=== PATIENT | female | born 1955 | race Caucasian/White ===

== ENCOUNTER 2022-10-02 04:52 | Emergency (ER) | payer MEDICARE, BC ==
[~2022-10-02] VITALS: Ht 160 cm; Wt 65.8 kg
[2022-10-02 05:00] VITALS: BP 127/80
[2022-10-02 05:10] LABS: BILIRUBIN,URINE 1+ (NEGATIVE); UROBILINOGEN,URINE 0.2 E.U./dL (0.2)
[2022-10-02] MEDS ORDERED: ZOFRAN ODT ONE (05:15)
[2022-10-02] MEDS ORDERED: ZOFRAN ODT SL STA (05:18)
--- NOTE | 2022-10-02 05:21 | ER.PDOC ---
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 She seems agitated but when responding to questions she is appropriate. Has popsicle sticks taped to her fingers. No hx of renal colic Denies chest pain 1st visit here. Hx from her and Review of meds: on Clonapen,xanax,norco ,welbutrin,zyprexa,dexamphetamines,prozac,lisinopril as well as THC!!! 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 She is at risk for serotonin crisis as well as extrapyrimidal effects I gave zofran for nausea but followed up with benadryl IV. She requested pain meds,but would avoid narcotics,since she is also on [place]. Severity/Quality: mild Associated Symptoms: abdominal pain, dysuria, lower back pain, nausea/vomiting Allergies: Coded Allergies: No Known Drug Allergies (Verified Allergy, Unknown, 10/02/22) Past Medical History Medical History: hypertension, other Surgical History: no surgical history Family History Significant Family History: no pertinent family hx Social History Smoking: less than 1 pack/day Alcohol Use: occassionally Drug Use: marijuana Review of Systems Constitutional: no symptoms reported EENTM: no symptoms reported Respiratory: no symptoms reported Cardiovascular: no symptoms reported Gastrointestinal: see HPI, abdominal pain, nausea, vomiting Genitourinary: see HPI, burning, frequency, hematuria Musculoskeletal: no symptoms reported Skin: see HPI, other (ecchymosis) Psychiatric/Neurological: see HPI, anxiety, depressed Endocrine: no symptoms reported Hematologic/Lymphatic: no symptoms reported All Other Systems: Reviewed and Negative Physical Exam General Appearance: No Apparent Distress, Anxious, Other (bruising to) EENT: eyes nml inspection, pharynx nml Cardiovascular/Respiratory: Regular Rate, Rhythm, No JVD, Normal Breath Sounds Abdomen: Non Tender, Soft Rectal: Deferred Back: nml inspection Extremities: Normal Range of Motion 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 (10/02/22 05:26) Saline Lock (10/02/22 05:26) Ct Abd/Pelvis Wo Iv Contrast (10/02/22 05:26) Ketorolac Tromethamine (Toradol) (10/02/22 05:30) Diphenhydramine Hcl (Benadryl) (10/02/22 05:30) 0.9 % Sodium Chloride (Ns 1000ml) (10/02/22 05:30) 0.9 % Sodium Chloride (Ns 1000ml) (10/02/22 05:32) Diphenhydramine Hcl (Benadryl) (10/02/22 05:32) Ketorolac Tromethamine (Toradol) (10/02/22 05:32) Vital Signs Date Time Temp Pulse Resp B/P (MAP) Pulse Ox O2 Delivery O2 Flow Rate FiO2 10/02/22 05:00 98.3 90 16 97 10/02/22 05:00 98.3 90 16 127/80 (96) 97 Room Air* 0 21 Administered Medications Medications (Trade) Dose Ordered Sig/Usman Route PRN Reason Start Time Stop Time Status Last Admin Dose Admin Diphenhydramine HCl (Benadryl) 25 mg Q6HR PRN IV ITCHING 10/02/22 05:30 11/01/22 05:29 10/02/22 05:36 25 MG Ketorolac Tromethamine (Toradol) 15 mg Q6H PRN IV PAIN 4 - 6 10/02/22 05:30 10/07/22 05:29 10/02/22 05:36 15 MG Ondansetron HCl (Zofran Odt) 4 mg OT STAT SL 10/02/22 05:18 10/02/22 05:20 DC 10/02/22 05:19 4 MG Sodium Chloride 1,000 ml @ 0 mls/hr Q0M ONCE IV 10/02/22 05:30 10/02/22 05:31 DC 10/02/22 05:36 1,200 MLS/HR Laboratory Tests Test 10/02/22 04:55 10/02/22 05:30 Urine Collection Type RANDOM Urine Color RED Urine Appearance CLOUDY Urine Bilirubin 1+ (NEGATIVE) H Urine Ketones NEGATIVE (NEGATIVE) Urine Specific Allred 1.015 (1.005-1.030) Urine pH 7.5 (4.5-8.0) Urine Protein 2+ (NEGATIVE) H Urine Urobilinogen 0.2 E.U./dL (0.2) Urine Nitrate NEGATIVE (NEGATIVE) Urine Leukocyte Esterase 1+ (NEGATIVE) H Urine Glucose (Auto)(UA) NEGATIVE (NEGATIVE) Urine Blood 3+ (NEGATIVE) H Urine RBC TooNumerousToCount RBC/HPF (NONE Urine WBC 0-2 WBC/HPF (0-2) Urine Squamous Epithelial Cells FEW (<=FEW) Urine Bacteria FEW (NONE SEEN) H White Blood Count 8.2 10^3/uL (4.5-11.0) Red Blood Count 4.05 10^6/uL (4.00-5.20) Hemoglobin 12.4 g/dL (12.0-15.0) Hematocrit 37.8 % (36.0-46.0) Mean Corpuscular Volume 93.3 fL (78-100) Mean Corpuscular Hemoglobin 30.6 pg (26-34) Mean Corpuscular Hemoglobin Concent 32.8 g/dL (33-36.5) L Red Cell Distribution Width 13.4 % (11.5-14.5) Platelet Count 367 10^3/uL (150-400) Mean Platelet Volume 8.8 fL (7.8-11.0) Neutrophils (%) (Auto) 70.0 % (41.0-85.0) Lymphocytes (%) (Auto) 19.8 % (24.0-44.0) L Monocytes (%) (Auto) 7.6 % (5.0-12.0) Neutrophils # (Auto) 5.7 10^3/uL (1.8-7.7) Lymphocytes # (Auto) 1.61 10^3/uL1 (1.0-4.8) Monocytes # (Auto) 0.6 10^3/uL (0.3-0.8) Absolute Immature Granulocyte (auto 0.04 10^3 u/L (0-2) Absolute Eosinophils (auto) 0.1 10^3/uL (0.0-0.2) Immature Granulocytes % 0.50 % (0.00-0.50) Eosinophils % 1.7 % (0.0-5.0) Basophils % 0.4 % (0.0-0.2) H Basophils # 0.0 10^3/uL (0.0-0.1) Sodium Level 133 mmol/L (132-145) Potassium Level 4.3 mmol/L (3.6-5.2) Chloride Level 97.0 mmol/L (96-109) Carbon Dioxide Level 27.2 mmol/L (20.0-32) Anion Gap 13.1 Blood Urea Nitrogen 23 mg/dL (7-18) H Creatinine 1.22 mg/dL (0.59-1.40) Estimated GFR () 53.4 (>/=60) Est GFR (CKD-EPI)(Non-Afr Icelandic) 44.1 (>/=60) BUN/Creatinine Ratio 18.0 (10.0-20.0) Glucose Level 98 mg/dL (70-110) Calcium Level 8.5 mg/dL (8.4-10.5) Total Bilirubin 0.5 mg/dL (0.2-1.0) Aspartate Amino Transferase (AST) 30 U/L (0-35) Alanine Aminotransferase (ALT) 28 U/L (12-78) Alkaline Phosphatase 121 U/L (50-136) Total Protein 7.3 g/dL (6.4-8.2) Albumin 3.9 g/dL (3.4-5.0) Globulin 3.4 Albumin/Globulin Ratio 1.147 Lipase 30 U/L (16-77) Review of urine not really pyuric. More like renal colic. Large blood and protein CBC is normal. 5:45 Progress Progress T12 compression fracture ? age,bladder thickening on CT Discussed labs and findings Both patient and had no questions EKG/XRAY/CT/US CT Comments: reviewed by me ER DEPART Departure Time of Disposition: 06:51 Disposition: 01 HOME / SELF CARE / HOMELESS Impression: Primary Impression: Cystitis Additional Impression: T12 compression fracture Condition: Stable Referrals: PCP,UNKNOWN (PCP) PRIMARY CARE PROVIDER Comments bactrim ds q12 hrs advil 3 tabs q6-8 hrs heat to back f/u with local md return if fever, persistant vomiting Duration or Time Spent with Pa: 45 Problem Qualifiers VIKKI ARMANDO MD Oct 02, 2022 05:21
[2022-10-02] MEDS ORDERED: TORADOL IV PRN (05:30)
[2022-10-02] MEDS ORDERED: BENADRYL IV PRN (05:30)
[2022-10-02] MEDS ORDERED: NS 1000ML 1,000 ML IV ONE (05:30)
[2022-10-02] MEDS ORDERED: BENADRYL ONE (05:32)
[2022-10-02] MEDS ORDERED: NS 1000ML 1,000 ML ONE (05:32)
[2022-10-02] MEDS ORDERED: TORADOL ONE (05:32)
[2022-10-02 05:37] LABS: BASOPHIL % 0.4 % (0.0-0.2); EOSINOPHIL # 0.1 10^3/uL (0.0-0.2); EOSINOPHIL % 1.7 % (0.0-5.0); LYMPHOCYTES # 1.61 10^3/uL1 (1.0-4.8); LYMPHOCYTES % 19.8 % (24.0-44.0); MEAN CORP HGB 30.6 pg (26-34); MONOCYTES # 0.6 10^3/uL (0.3-0.8); MONOCYTES % 7.6 % (5.0-12.0); NEUTROPHIL # 5.7 10^3/uL (1.8-7.7); PLATELET COUNT 367 10^3/uL (150-400); RED CELL DISTRIBUTION WIDTH 13.4 % (11.5-14.5)
[2022-10-02 05:54] LABS: CARBON DIOXIDE 27.2 mmol/L (20.0-32)
--- NOTE | 2022-10-02 06:22 | DIREP ---
PROCEDURE:CT ABDOMEN/PELVIS W/O CONTRAST COMPARISON:None. INDICATIONS:abdominal pain,dysuria TECHNIQUE:Axial images were created through the abdomen and pelvis without intravenous contrast material. No oral contrast was administered. Sagittal and coronal reconstructions were performed from source images. FINDINGS: LUNG BASES:Normal. No visible pulmonary or pleural disease. LIVER:Normal. No significant liver lesions are identified. BILIARY:Normal. No visible dilatation or calcification. PANCREAS:Normal. No lesion, fluid collection, ductal dilatation, or atrophy. SPLEEN:Normal. No enlargement or focal lesion. ADRENALS:Normal. No mass or enlargement. URINARY TRACT:Normal. No suspicious lesions or hydronephrosis. AORTA/VASCULAR:There is mild atherosclerosis. RETROPERITONEUM:Normal. No mass or adenopathy. BOWEL/MESENTERY:Normal. There is no intestinal obstruction, free fluid, free air or mesenteric inflammatory changes. The appendix is normal. ABDOMINAL WALL:Mild thoracic and lumbar spondylosis. There is an age-indeterminate compression fracture of the T12 vertebral body. PELVIC ORGANS:The uterus is normal. Mild urinary bladder wall thickening. BONES:Normal for age. No bony lesion or acute fracture. OTHER:Negative. CONCLUSION: 1. Mild thickening of the urinary bladder wall may represent acute cystitis in the appropriate clinical setting. 2. Age-indeterminate fracture of the T12 vertebral body is favored chronic. Correlate with point tenderness. An MRI could be performed to assess acuity if clinically indicated. Dictated by: Shorty Temple M.D. on 10/02/2022 at 06:15 AM
[2022-10-02] MEDS ORDERED: BACTRIM DS PO STA (06:49)
[2022-10-02] MEDS ORDERED: BACTRIM DS ONE (06:54)
== END 2022-10-02 07:00 | disposition home or self-care (01) ==
LOC: ER 04:52
DX: N30.91 Cystitis, unspecified with hematuria (principal); M48.54XA Collapsed vertebra, not elsewhere classified, thoracic region, initial encounter for fracture; I10 Essential (primary) hypertension; F12.90 Cannabis use, unspecified, uncomplicated
CPT/HCPCS: 99285; 74176; 96374; 96361; 96375; 87086; 80053; 85025; 36415; 81001; 83690; 87077; 87186; J7030; J1200; J1885

== ENCOUNTER 2023-09-18 09:23 | Emergency (ER) | payer MEDICARE, BC ==
[~2023-09-18] VITALS: Ht 157.5 cm; Wt 65.8 kg
[2023-09-18 09:42] VITALS: BP 135/72; PULSE 89; RESP 18; TEMP 98.3; O2SAT 97
[2023-09-18 10:25] LABS: BILIRUBIN,URINE NEGATIVE (NEGATIVE); LEUKOCYTE ESTERASE ,URINE 1+ (NEGATIVE); NITRATE,URINE POSITIVE (NEGATIVE); PH,URINE 6.5 (4.5-8.0); UROBILINOGEN,URINE 0.2 E.U./dL (0.2)
[2023-09-18 10:28] LABS: UA COLOR ORANGE
[2023-09-18] MEDS ORDERED: NITR100C PO (11:10)
[2023-09-18] MEDS ORDERED: PYRIDIUM PO ONE (11:13)
[2023-09-18] MEDS ORDERED: MACROBID ONE (11:13)
[2023-09-18] MEDS: MACROBID PO STA (11:14)
[2023-09-18] MEDS: PYRIDIUM PO STA (11:14)
[2023-09-18 11:16] VITALS: BP 128/76; PULSE 87; RESP 18; O2SAT 98
== END 2023-09-18 11:19 | disposition home or self-care (01) ==
LOC: ER 09:23
DX: N30.90 Cystitis, unspecified without hematuria (principal); I10 Essential (primary) hypertension; E78.00 Pure hypercholesterolemia, unspecified; F12.90 Cannabis use, unspecified, uncomplicated
CPT/HCPCS: 81001; 87077; 87086; 87186; 99283